=== PATIENT | female | born 1970 | race Two or more races ===

== ENCOUNTER 2020-07-12 08:54 | Outpatient (CLI) | payer OTHER | END 2020-07-12 09:07 | disposition home or self-care (01) | LOC: MAMO-SONO 08:54 | PROVIDERS: ATTEND Internal Medicine | DX: Z12.31 Encounter for screening mammogram for malignant neoplasm of breast (principal); N64.59 Other signs and symptoms in breast ==

== ENCOUNTER 2021-10-23 12:06 | Outpatient (CLI) | payer OTHER | END 2021-10-23 12:14 | disposition home or self-care (01) | LOC: MAMO-SONO 12:06 | PROVIDERS: ATTEND Internal Medicine | DX: Z12.31 Encounter for screening mammogram for malignant neoplasm of breast (principal) ==

== ENCOUNTER 2022-05-15 12:25 | Outpatient (CLI) | payer OTHER | END 2022-05-15 12:27 | disposition home or self-care (01) | LOC: NUCLEAR 12:25 | PROVIDERS: ATTEND Internal Medicine | DX: Z13.820 Encounter for screening for osteoporosis (principal) ==

== ENCOUNTER 2022-05-20 07:49 | Outpatient (CLI) | payer OTHER | END 2022-05-20 07:57 | disposition home or self-care (01) | LOC: SONOGRAMA 07:49 | PROVIDERS: ATTEND Internal Medicine | DX: R31.0 Gross hematuria (principal); Z68.20 Body mass index [BMI] 20.0-20.9, adult; E46 Unspecified protein-calorie malnutrition; E55.9 Vitamin D deficiency, unspecified; E78.9 Disorder of lipoprotein metabolism, unspecified; F41.9 Anxiety disorder, unspecified; G40.909 Epilepsy, unspecified, not intractable, without status epilepticus; E03.9 Hypothyroidism, unspecified; Z12.31 Encounter for screening mammogram for malignant neoplasm of breast; Z13.820 Encounter for screening for osteoporosis ==

== ENCOUNTER 2022-07-26 08:16 | Outpatient (CLI) | payer OTHER | END 2022-07-26 08:23 | disposition home or self-care (01) | LOC: MRI 08:16 | PROVIDERS: ATTEND Obstetrics & Gynecology | DX: N83.299 Other ovarian cyst, unspecified side (principal); N83.9 Noninflammatory disorder of ovary, fallopian tube and broad ligament, unspecified; N94.89 Other specified conditions associated with female genital organs and menstrual cycle; R10.2 Pelvic and perineal pain | CPT/HCPCS: 72197; 74183; Q9965 ==

== ENCOUNTER 2022-09-24 07:57 | Outpatient (CLI) | payer OTHER | END 2022-09-24 08:04 | disposition home or self-care (01) | LOC: MAMO-SONO 07:57 | PROVIDERS: ATTEND Obstetrics & Gynecology | DX: Z12.31 Encounter for screening mammogram for malignant neoplasm of breast (principal); N60.11 Diffuse cystic mastopathy of right breast; N60.12 Diffuse cystic mastopathy of left breast ==

== ENCOUNTER 2024-08-30 13:09 | Outpatient (CLI) | payer OTHER | END 2024-08-30 13:11 | disposition home or self-care (01) | LOC: NUCLEAR 13:09 | PROVIDERS: ATTEND Internal Medicine | DX: E78.9 Disorder of lipoprotein metabolism, unspecified (principal); Z12.31 Encounter for screening mammogram for malignant neoplasm of breast; E03.9 Hypothyroidism, unspecified; G40.909 Epilepsy, unspecified, not intractable, without status epilepticus; M81.0 Age-related osteoporosis without current pathological fracture ==

== ENCOUNTER 2024-11-25 08:04 | Outpatient (CLI) | payer OTHER | END 2024-11-25 08:07 | disposition home or self-care (01) | LOC: MAMO-SONO 08:04 | PROVIDERS: ATTEND Internal Medicine | DX: N64.0 Fissure and fistula of nipple (principal); E03.9 Hypothyroidism, unspecified; Z12.31 Encounter for screening mammogram for malignant neoplasm of breast; G40.909 Epilepsy, unspecified, not intractable, without status epilepticus; F41.9 Anxiety disorder, unspecified ==